=== PATIENT | female | born 2000 ===

== ENCOUNTER 2021-03-28 18:27 | Emergency (ER) | payer BC ==
[~2021-03-28] VITALS: Ht 165.1 cm; Wt 61.4 kg
[2021-03-28 18:36] VITALS: TEMP 98.8
[2021-03-28 20:20] VITALS: BP 121/68; PULSE 78
== END 2021-03-28 20:24 | disposition home or self-care (01) ==
LOC: COL.ER 18:27
DX: S93.401A Sprain of unspecified ligament of right ankle, initial encounter (principal); J45.909 Unspecified asthma, uncomplicated; X50.1XXA Overexertion from prolonged static or awkward postures, initial encounter

== ENCOUNTER 2021-10-01 20:17 | Emergency (ER) | payer BC ==
[~2021-10-01] VITALS: Ht 165.1 cm; Wt 72.7 kg
[2021-10-01 20:33] VITALS: TEMP 98.2
[2021-10-01 22:11] VITALS: BP 101/68; PULSE 70
== END 2021-10-01 22:12 | disposition home or self-care (01) ==
LOC: COL.ER 20:17
DX: G43.909 Migraine, unspecified, not intractable, without status migrainosus (principal); S93.401A Sprain of unspecified ligament of right ankle, initial encounter; X58.XXXA Exposure to other specified factors, initial encounter
CPT/HCPCS: J0780; J1100; J1200; J1885

== ENCOUNTER → 2022-12-25 | Outpatient (CLI) | payer BC | LOC: COL.RAD 13:42 | DX: R10.32 Left lower quadrant pain (principal) ==